=== PATIENT | male | born 1985 | race Caucasian/White ===

== ENCOUNTER 2016-11-25 17:48 | Emergency (ER) | payer OTHER ==
[~2016-11-25] VITALS: Ht 170.2 cm; Wt 71.0 kg
[~2016-11-25 17:48] MED LIST: ADV25050 INH; ALBU18HF IH; ALBU18HF INHALATION; ALBU8.5H3 IH; ALBU8.5H3 INH; ALBU8.5H5 IH; ALBU8.5H5 INH; AZIT250T94 PO; BECL8.7A INH; FLUT12HF IH; PRED20TA PO
[2016-11-25 19:00] VITALS: Ht 170.2 cm; Wt 71.0 kg
[2016-11-25] MEDS ORDERED: ONDANSETRON 4 MG INJ IV STA (20:04)
[2016-11-25] MEDS ORDERED: morphine 2 MG INJ IV STA (20:04)
[2016-11-25] MEDS ORDERED: SOD CHLORIDE 0.9% 1,000 ML IV STA (20:04)
[2016-11-25 21:32] LABS: HEMOGLOBIN 17.1 g/dl (14.0-18.0); MEAN CORPUSCULAR HEMOGLOBIN 30.9 pg (29.0-33.0); MEAN CORPUSCULAR HGB CONC 34.2 g/dl (32.0-37.0); MEAN CORPUSCULAR VOLUME 90.4 fl (82.0-101.0); PLATELET COUNT 178 10^3/UL (140-440); RED BLOOD COUNT 5.53 10^6/ul (4.70-6.10); RED CELL DISTRIBUTION WIDTH 13.2 % (11.5-14.5); UNCORRECTED WBC 4.8 10^3/ul (4.8-10.8); WHITE BLOOD COUNT 4.8 10^3/ul (4.8-10.8)
[2016-11-25 21:48] LABS: CONDITION 1; LH ANALYZER COMMENTS 1; SUSPECT 1
[2016-11-25 21:49] LABS: ALBUMIN 4.1 g/dl (3.3-4.9)
[2016-11-25 21:52] LABS: ALBUMIN/GLOBULIN RATIO 1.57; BILIRUBIN,INDIRECT 0.6 mg/dl (0-1.1); BILIRUBIN,TOTAL 0.6 mg/dl (0.2-1.3); CREATININE 1.22 mg/dl (0.61-1.24); TOTAL PROTEIN 6.7 g/dl (6.1-8.1)
[2016-11-25 21:53] LABS: CALCIUM 9.2 mg/dl (8.4-10.2)
[2016-11-25 22:22] LABS: ADD UMIC YES; URINE BILIRUBIN (Dip) 1+ (NEGATIVE); URINE BLOOD (Dip) 1+ (NEGATIVE); URINE COLOR YELLOW (YELLOW); URINE GLUCOSE (Dip) NEGATIVE (NEGATIVE); URINE KETONES (Dip) NEGATIVE (NEGATIVE); URINE LEUKOCYTE ESTERASE (Dip) NEGATIVE (NEGATIVE); URINE NITRITE (Dip) NEGATIVE (NEGATIVE); URINE TOTAL PROTEIN (Dip) 2+ (NEGATIVE); URINE UROBILINOGEN (Dip) 0.2 E.U./dL (0.1-1.0)
[2016-11-25 22:46] LABS: ICTOTEST NEGATIVE (NEGATIVE)
[2016-11-25 22:47] LABS: BACTERIA,URINE FEW; MUCUS,URINE FEW; SQUAMOUS EPITHELIAL CELL,UR RARE; URINE RBCS 0-2 /HPF (0)
[2016-11-25 23:04] LABS: LYMPHOCYTES # 1.1 10^3/ul (0.8-2.9); NEUTROPHIL # 1.8 10^3/ul (1.6-7.5); PLATELET ESTIMATE PLT APPEAR ADEQUATE
[2016-11-25] MEDS ORDERED: SOD CHLORIDE 0.9% 1,000 ML IV ONE (23:30)
[2016-11-26] MEDS ORDERED: UDLOM GTB (01:13)
[2016-11-26] MEDS ORDERED: ONDA4TAB11 PO (01:13)
--- NOTE | 2016-11-26 01:16 | ERD ---
ER Documentation Chief Complaint Date/Time DATE: 11/26/16 TIME: 01:13 Chief Complaint diarrhea x 1 day, anxiety HPI This 31-year-old male presents for one days history of diarrhea occasional vomiting, feeling sick, fevers and chills. He has appendectomy generalized abdominal pain as well. Has had a small amount of blood in his later episodes of diarrhea that were copious and watery. ROS All systems reviewed and are negative except as per history of present illness. Medications Home Meds Active Scripts Diphenoxylate Hcl-Atropine* (Lomotil*) 5 Ml Soln, 5 ML GTB Q6H Y for DIARRHEA, # 10 ML Prov:ARIA COOPER DO 11/26/16 Ondansetron (Zofran Odt) 4 Mg Tab.rapdis, 4 MG PO Q6, #10 Prov:ARIA COOPER DO 11/26/16 Albuterol Sulfate* (Ventolin HFA*) 18 Gm Hfa.aer.ad, 2 PUFF INHALATION Q4H, #1 INHALER Prov:MORGAN HOFFMANC 04/18/16 Prednisone* (Prednisone*) 20 Mg Tab, 40 MG PO DAILY, #8 TAB 0 Refills Prov:HENOK DORSEYC 02/26/16 Albuterol Sulfate* (Ventolin HFA*) 18 Gm Hfa.aer.ad, 2 PUFF INHALATION Q6H, #1 INHALER 0 Refills Prov:HENOK DORSEYC 02/26/16 Albuterol Sulfate* (Ventolin HFA*) 18 Gm Hfa.aer.ad, 2 PUFF INHALATION Q4H, #1 INHALER Prov:VELMA BRAUN NP 01/22/16 Prednisone* (Prednisone*) 20 Mg Tab, 40 MG PO DAILY for 4 Days, TAB Prov:MICHAELLE ROQUE MD 09/06/15 Albuterol Sulfate* (Albuterol Sulfate* HFA) 8.5 Gm Hfa.aer.ad, 1-2 PUFF INH Q4 Y for SHORTNESS OF BREATH, #1 EA Prov:MICHAELLE ROQUE MD 09/06/15 Albuterol Sulfate* (Proair HFA*) 8.5 Gm Hfa.aer.ad, 2 PUFF INH Q4 for cough wheeze for 30 Days, INH 2 Refills Prov:ANDREZ DELACRUZ MD 06/22/15 Salmeterol Xinaf/Fluticasone* (Advair*) 250-50 Diskus Inhaler, 1 INH INH BID, # 1 INH Prov:ESTELA YATES NP 06/09/15 Azithromycin* (Zithromax*) 250 Mg Tablet, 250 MG PO .ZPACK DIRECTED, #6 TAB TAKE 500 MG (2 TABS) THE FIRST DAY THEN 250 MG (1 TAB) DAYS 2-5 Prov:ESTELA YATES NP 06/09/15 Albuterol Sulfate* (Albuterol Sulfate* HFA) 8.5 Gm Hfa.aer.ad, 1-2 PUFF INH Q4 Y for SHORTNESS OF BREATH, #1 EA Prov:ESTELA YATES NP 06/09/15 Albuterol Sulfate* (Albuterol Sulfate* HFA) 8.5 Gm Hfa.aer.ad, 1-2 PUFF IH Q4H Y for WHEEZING AND SOB, #1 EA Prov:AFRICA STAFFORD PA-C 05/31/15 Prednisone* (Prednisone*) 20 Mg Tab, 40 MG PO DAILY for 3 Days, TAB Prov:AFRICA STAFFORD PA-C 05/31/15 Prednisone* (Prednisone*) 20 Mg Tab, 20 MG PO BID for 3 Days, TAB Prov:MATT FORREST 05/22/15 Beclomethasone Dip* (Qvar 40*) 7.3 Gm Inha, 1 PUFF INH BID, #1 INH Prov:MAYRALIEZTT DO 04/19/15 Albuterol Sulfate* (Proair HFA*) 8.5 Gm Hfa.aer.ad, 2 PUFF INH Q4, #1 INH Prov:MAYRA,LIZETT DO 04/19/15 Salmeterol Xinaf-Fluticasone* (Advair HFA*) 45/212 Aerosol Inhaler, 2 INH IH BID for 30 Days, INH 1 Refill Prov:ANDREZ DELACRUZ MD 04/06/15 Albuterol Sulfate* (Ventolin HFA*) 18 Gm Hfa.aer.ad, 2 PUFF IH Q4H Y for WHEEZING AND RESP DISTRESS for 7 Days, EA 2 Refills Prov:ANDREZ DELACRUZ MD 04/06/15 Prednisone* (Prednisone*) 20 Mg Tab, 60 MG PO DAILY, #15 TAB 60MG PO X 3 DAYS, THEN 40MG PO X 3 DAYS Prov:ANDREZ DELACRUZ MD 04/06/15 Reported Medications Albuterol Sulfate* (Proair HFA*) 8.5 Gm Hfa.aer.ad, 8.5 GM IH PRN 05/25/13 Allergies Allergies: Coded Allergies: No Known Drug Allergies (Verified Allergy, Unknown, 04/18/16) PMhx/Soc Medical and Surgical Hx: pt denies Surgical Hx History of Surgery: No Anesthesia Reaction: No Hx Neurological Disorder: No Hx Respiratory Disorders: Yes (Asthma) Hx Cardiac Disorders: No Hx Psychiatric Problems: No Hx Miscellaneous Medical Probl: No Hx Alcohol Use: Yes Hx Substance Use: Yes (THC) Hx Tobacco Use: No Smoking Status: Never smoker Physical Exam Vitals Vital Signs Date Time Temp Pulse Resp B/P Pulse Ox O2 Delivery O2 Flow Rate FiO2 11/25/16 19:00 102.9 142 20 138/72 100 Physical Exam Const: [] Mild distress, appears uncomfortable Head: Atraumatic Eyes: Normal Conjunctiva ENT: Normal External Ears, Nose and Mouth. Neck: Full range of motion..~ No meningismus. Resp: Clear to auscultation bilaterally Cardio: Regular tachycardia, no murmurs Abd: Soft, diffuse abdominal tenderness without guarding or rebound, non distended. Normal bowel sounds Skin: No petechiae or rashes Ext: No cyanosis, or edema Neur: Awake and alert and oriented 3, no focal deficits Psych: Normal Mood and Affect Result Diagram: 11/25/16202611/25/162026 Results 24 hrs Laboratory Tests Test 11/25/16 20:27 11/25/16 21:50 Alanine Aminotransferase (ALT/SGPT) 39IU/L Albumin 4.1g/dl Albumin/Globulin Ratio 1.57 Alkaline Phosphatase 50IU/L Anion Gap 22 Aspartate Amino Transf (AST/SGOT) 25IU/L Band Neutrophils % 18.0% Basophils # 10^3/ul Basophils % % Blood Urea Nitrogen 23mg/dl Calcium Level 9.2mg/dl Carbon Dioxide Level 22mmol/L Chloride Level 88mmol/L Creatinine 1.22mg/dl Direct Bilirubin 0.00mg/dl Eosinophils # 10^3/ul Eosinophils % % Globulin 2.60g/dl Glucose Level 175mg/dl Hematocrit 50.0% Hemoglobin 17.1g/dl Indirect Bilirubin 0.6mg/dl Lipase 12U/L Lymphocytes # 1.110^3/ul Lymphocytes % 22.0% Mean Corpuscular Hemoglobin 30.9pg Mean Corpuscular Hemoglobin Concent 34.2g/dl Mean Corpuscular Volume 90.4fl Mean Platelet Volume 10.0fl Metamyelocytes # 0.1 Metamyelocytes % 3.0% Monocytes # 1.010^3/ul Monocytes % 20.0% Neutrophils # 1.810^3/ul Neutrophils % 37.0% Nucleated Red Blood Cells # 10^3/ul Nucleated Red Blood Cells % /100WBC Platelet Count 77354^3/UL Platelet Estimate PLT APPEAR ADEQUATE Potassium Level 4.0mmol/L Red Blood Count 5.5310^6/ul Red Cell Distribution Width 13.2% Sodium Level 128mmol/L Total Bilirubin 0.6mg/dl Total Protein 6.7g/dl White Blood Count 4.810^3/ul Urine Bacteria FEW Urine Bilirubin 1+ Urine Clarity CLEAR Urine Color YELLOW Urine Glucose NEGATIVE% Urine Hemoglobin 1+ Urine Ictotest NEGATIVE Urine Ketones NEGATIVE Urine Leukocyte Esterase NEGATIVE Urine Microscopic RBC 0-2/HPF Urine Microscopic WBC NONE SEEN/HPF Urine Mucus FEW Urine Nitrite NEGATIVE Urine Specific [place] >=1.030 Urine Squamous Epithelial Cells RARE Urine Total Protein 2+ Urine Urobilinogen 0.2 E.U./dL Urine pH 6.0 Current Medications Medications (Trade) Dose Ordered Sig/Libertad Route PRN Reason Start Time Stop Time Status Last Admin Dose Admin Sodium Chloride (NS) 1,000 ml @ 1,000 mls/hr Q1H STAT IV 11/25/16 20:04 11/25/16 21:03 DC 11/25/16 20:29 Morphine Sulfate (morphine) 2 mg ONCE STAT IV 11/25/16 20:04 11/25/16 20:05 DC 11/25/16 20:29 Ondansetron HCl 4 mg 4 mg ONCE STAT IV 11/25/16 20:04 11/25/16 20:05 DC 11/25/16 20:29 Sodium Chloride (NS) 1,000 ml @ 1,000 mls/hr Q1H ONCE IV 11/25/16 23:30 11/26/16 00:29 DC 11/25/16 23:34 Procedures/MDM Patient with gastroenteritis causing dehydration. He has a low sodium as well as a high normal hemoglobin and elevated BUN consistent with dehydration. This is likely secondary to his diarrhea. I see no signs of serious bacterial infection. Patient was hydrated with normal saline given a small dose of IV morphine and Zofran in the emergency room. After this he was feeling much better and stated he wished to go home. Believe that he will likely recover from his gastroenteritis. Admitted discharge him with Zofran ODT; remained hydrated as well as Lomotil for symptomatically relief of diarrhea. Return precautions were given as well as primary care follow-up in 2-3 days. Departure Diagnosis: Primary Impression: Rectal bleed Additional Impressions: Gastroenteritis Hyponatremia Dehydration Condition: Stable Patient Instructions: Rectal Bleed, Stable, Gastroenteritis, Viral (6Y-Adult) Referrals: SARAH TITUS (PCP) Additional Instructions: Call your primary care doctor TOMORROW for an appointment during the next 2-3 days.See the doctor sooner or return here if your condition worsens before your appointment time. ARIA COOPER DO Nov 26, 2016 01:16
[2016-11-26] MEDS ORDERED: ACETAMINOPHEN 500 MG TAB PO STA (01:21)
[2016-11-26] MEDS ORDERED: LORAZEPAM 2 MG INJ IV ONE (01:30)
[2016-11-26] MEDS ORDERED: IBUPROFEN 200 MG TAB PO ONE (01:30)
[2016-11-26] MEDS ORDERED: ALBU18HF INHALATION (02:05)
[2016-11-26 02:49] VITALS: BP 118/78; PULSE 105; RESP 18; TEMP 100
[2016-11-27] MEDS ORDERED: DIPH1TAB PO (06:34)
[2016-11-27] MEDS ORDERED: HYDR-906 PO (06:34)
[2016-11-27] MEDS ORDERED: ONDA4TAB14 PO (06:34)
== END 2016-11-26 02:56 | disposition home or self-care (01) ==
LOC: FTE 17:48
DX: K62.5 Hemorrhage of anus and rectum (principal); K52.9 Noninfective gastroenteritis and colitis, unspecified; E87.1 Hypo-osmolality and hyponatremia; E86.0 Dehydration; J45.909 Unspecified asthma, uncomplicated; R11.10 Vomiting, unspecified
CPT/HCPCS: 36415; 80053; 81001; 81003; 83690; 85025; 96361; 96374; 96375; J2060; J2270; J2405; J7030; Z7502; Z7610

== ENCOUNTER 2016-11-27 03:15 | Emergency (ER) | payer OTHER ==
[~2016-11-27] VITALS: Ht 182.9 cm; Wt 71.5 kg
[~2016-11-27 03:15] MED LIST changes: +ONDA4TAB11 PO; +UDLOM GTB
[2016-11-27 03:39] VITALS: Ht 182.9 cm; Wt 71.5 kg
[2016-11-27] MEDS ORDERED: morphine 2 MG INJ IV STA (05:00)
[2016-11-27] MEDS ORDERED: SOD CHLORIDE 0.9% 1,000 ML IV STA (05:00)
[2016-11-27] MEDS ORDERED: DICLOFENAC SODIUM 37.5 MG/ML VIAL IV STA (05:00)
[2016-11-27] MEDS ORDERED: ONDANSETRON 4 MG INJ IV STA (05:00)
[2016-11-27 05:50] LABS: HEMOGLOBIN 16.5 g/dl (14.0-18.0); MEAN CORPUSCULAR HEMOGLOBIN 31.2 pg (29.0-33.0); MEAN CORPUSCULAR HGB CONC 34.3 g/dl (32.0-37.0); MEAN CORPUSCULAR VOLUME 90.9 fl (82.0-101.0); MEAN PLATELET VOLUME 10.3 fl (7.4-10.4); PLATELET COUNT 176 10^3/UL (140-440); RED BLOOD COUNT 5.28 10^6/ul (4.70-6.10); UNCORRECTED WBC 8.7 10^3/ul (4.8-10.8); WHITE BLOOD COUNT 8.7 10^3/ul (4.8-10.8)
[2016-11-27 05:53] LABS: ALBUMIN 3.7 g/dl (3.3-4.9)
[2016-11-27 05:55] LABS: CREATININE 1.23 mg/dl (0.61-1.24)
[2016-11-27 05:56] LABS: ALBUMIN/GLOBULIN RATIO 1.15; BILIRUBIN,INDIRECT 0.6 mg/dl (0-1.1); BILIRUBIN,TOTAL 0.6 mg/dl (0.2-1.3); CALCIUM 8.8 mg/dl (8.4-10.2); TOTAL PROTEIN 6.9 g/dl (6.1-8.1)
[2016-11-27 05:58] LABS: CONDITION 1; LH ANALYZER COMMENTS 1; SUSPECT 1
[2016-11-27 06:34] LABS: POTASSIUM 3.3 mmol/L (3.5-5.1)
[2016-11-27] MEDS ORDERED: HYDR-906 PO (06:34)
[2016-11-27] MEDS ORDERED: DIPH1TAB PO (06:34)
[2016-11-27] MEDS ORDERED: ONDA4TAB14 PO (06:34)
--- NOTE | 2016-11-27 06:37 | ERD ---
ER Documentation Chief Complaint Date/Time DATE: 11/27/16 TIME: 06:35 Chief Complaint blood in stools x 1 day, anxiety HPI This 31-year-old male presents again for diarrhea and crampy abdominal pain. His also had nausea with no vomiting. I saw him last night for the same. Again brings both parents. He's had no fevers or chills she stated the diarrhea did not resolve. He is not taking 1 pill of the medications that he was prescribed. ROS All systems reviewed and are negative except as per history of present illness. Medications Home Meds Active Scripts Ondansetron (Ondansetron Odt) 4 Mg Tab.rapdis, 4 MG PO Q6H Y for NAUSEA AND/OR VOMITING, #10 TAB Prov:ARIA COOPER DO 11/27/16 Diphenoxylate HCl/Atropine (Lomotil 2.5-0.025 mg Tablet) 1 Each Tablet, 1 TAB PO Q6H Y for DIARRHEA, #10 TAB Prov:ARIA COOPER DO 11/27/16 Hydrocodone/Acetaminophen (Kimberly 5-325 Tablet) 1 Each Tablet, 1 EACH PO Q6, #12 TAB Prov:KENNETHARIAHENRI RAMIREZ 11/27/16 Albuterol Sulfate* (Ventolin HFA*) 18 Gm Hfa.aer.ad, 2 PUFF INHALATION Q4H, #1 INHALER Prov:NARCISA ESQUIVEL MD 11/26/16 Diphenoxylate Hcl-Atropine* (Lomotil*) 5 Ml Soln, 5 ML GTB Q6H Y for DIARRHEA, # 10 ML Prov:KENNETHARIAHENRI RAMIREZ 11/26/16 Ondansetron (Zofran Odt) 4 Mg Tab.rapdis, 4 MG PO Q6, #10 Prov:KENNETHARIA DO 11/26/16 Albuterol Sulfate* (Ventolin HFA*) 18 Gm Hfa.aer.ad, 2 PUFF INHALATION Q4H, #1 INHALER Prov:MORGAN HOFFMAN PA-C 04/18/16 Prednisone* (Prednisone*) 20 Mg Tab, 40 MG PO DAILY, #8 TAB 0 Refills Prov:HENOK DORSEY PA-C 02/26/16 Albuterol Sulfate* (Ventolin HFA*) 18 Gm Hfa.aer.ad, 2 PUFF INHALATION Q6H, #1 INHALER 0 Refills Prov:HENOK DORSEY PA-C 02/26/16 Albuterol Sulfate* (Ventolin HFA*) 18 Gm Hfa.aer.ad, 2 PUFF INHALATION Q4H, #1 INHALER Prov:VELMA BRAUN [employer] 01/22/16 Prednisone* (Prednisone*) 20 Mg Tab, 40 MG PO DAILY for 4 Days, TAB Prov:MICHAELLE ROQUE MD 09/06/15 Albuterol Sulfate* (Albuterol Sulfate* HFA) 8.5 Gm Hfa.aer.ad, 1-2 PUFF INH Q4 Y for SHORTNESS OF BREATH, #1 EA Prov:MICHAELLE ROQUE MD 09/06/15 Albuterol Sulfate* (Proair HFA*) 8.5 Gm Hfa.aer.ad, 2 PUFF INH Q4 for cough wheeze for 30 Days, INH 2 Refills Prov:ANDREZ DELACRUZ MD 06/22/15 Salmeterol Xinaf/Fluticasone* (Advair*) 250-50 Diskus Inhaler, 1 INH INH BID, # 1 INH Prov:ESTELA YATES NP 06/09/15 Azithromycin* (Zithromax*) 250 Mg Tablet, 250 MG PO .JOANN DIRECTED, #6 TAB TAKE 500 MG (2 TABS) THE FIRST DAY THEN 250 MG (1 TAB) DAYS 2-5 Prov:ESTELA YATES NP 06/09/15 Albuterol Sulfate* (Albuterol Sulfate* HFA) 8.5 Gm Hfa.aer.ad, 1-2 PUFF INH Q4 Y for SHORTNESS OF BREATH, #1 EA Prov:ESTELA YATES NP 06/09/15 Albuterol Sulfate* (Albuterol Sulfate* HFA) 8.5 Gm Hfa.aer.ad, 1-2 PUFF IH Q4H Y for WHEEZING AND SOB, #1 EA Prov:AFRICA STAFFORD PA-C 05/31/15 Prednisone* (Prednisone*) 20 Mg Tab, 40 MG PO DAILY for 3 Days, TAB Prov:AFRICA STAFFORD PA-C 05/31/15 Prednisone* (Prednisone*) 20 Mg Tab, 20 MG PO BID for 3 Days, TAB Prov:ROMULO FORRESTA 05/22/15 Beclomethasone Dip* (Qvar 40*) 7.3 Gm Inha, 1 PUFF INH BID, #1 INH Prov:LIZETT NUNEZ DO 04/19/15 Albuterol Sulfate* (Proair HFA*) 8.5 Gm Hfa.aer.ad, 2 PUFF INH Q4, #1 INH Prov:LIZETT NUNEZ 04/19/15 Salmeterol Xinaf-Fluticasone* (Advair HFA*) 45/212 Aerosol Inhaler, 2 INH IH BID for 30 Days, INH 1 Refill Prov:ANDREZ DELACRUZ MD 04/06/15 Albuterol Sulfate* (Ventolin HFA*) 18 Gm Hfa.aer.ad, 2 PUFF IH Q4H Y for WHEEZING AND RESP DISTRESS for 7 Days, EA 2 Refills Prov:ANDREZ DELACRUZ MD 04/06/15 Prednisone* (Prednisone*) 20 Mg Tab, 60 MG PO DAILY, #15 TAB 60MG PO X 3 DAYS, THEN 40MG PO X 3 DAYS Prov:ANDREZ DELACRUZ MD 04/06/15 Reported Medications Albuterol Sulfate* (Proair HFA*) 8.5 Gm Hfa.aer.ad, 8.5 GM IH PRN 05/25/13 Allergies Allergies: Coded Allergies: No Known Drug Allergies (Verified Allergy, Unknown, 04/18/16) PMhx/Soc Medical and Surgical Hx: pt denies Surgical Hx History of Surgery: No Anesthesia Reaction: No Hx Neurological Disorder: No Hx Respiratory Disorders: Yes (Asthma) Hx Cardiac Disorders: No Hx Psychiatric Problems: No Hx Miscellaneous Medical Probl: No Hx Alcohol Use: Yes Hx Substance Use: Yes (THC) Hx Tobacco Use: No Smoking Status: Former smoker Physical Exam Vitals Vital Signs Date Time Temp Pulse Resp B/P Pulse Ox O2 Delivery O2 Flow Rate FiO2 11/27/16 05:25 98.9 87 17 131/82 100 Room Air 11/27/16 03:39 98.9 87 20 137/88 100 Physical Exam Const: [] No distress Head: Atraumatic Eyes: Normal Conjunctiva ENT: Normal External Ears, Nose and Mouth. Neck: Full range of motion..~ No meningismus. Resp: Clear to auscultation bilaterally Cardio: Regular rate and rhythm, no murmurs Abd: Soft, mild diffuse abdominal tenderness without guarding or rebound, non distended. Normal bowel sounds Skin: No petechiae or rashes Back: No midline or flank tenderness Ext: No cyanosis, or edema Neur: Awake and alert Psych: Normal Mood and Affect Result Diagram: 11/27/16 7959 11/27/16 0500 Results 24 hrs Laboratory Tests Test 11/27/16 04:55 11/27/16 05:00 Basophils # Pending Basophils % Pending Eosinophils # Pending Eosinophils % Pending Hematocrit 48.0% Hemoglobin 16.5g/dl Lymphocytes # Pending Lymphocytes % Pending Mean Corpuscular Hemoglobin 31.2pg Mean Corpuscular Hemoglobin Concent 34.3g/dl Mean Corpuscular Volume 90.9fl Mean Platelet Volume 10.3fl Monocytes # Pending Monocytes % Pending Neutrophils # Pending Neutrophils % Pending Nucleated Red Blood Cells # Pending Nucleated Red Blood Cells % Pending Platelet Count 04775^3/UL Red Blood Count 5.2810^6/ul Red Cell Distribution Width 13.0% White Blood Count 8.710^3/ul Alanine Aminotransferase (ALT/SGPT) 40IU/L Albumin 3.7g/dl Albumin/Globulin Ratio 1.15 Alkaline Phosphatase 74IU/L Anion Gap Pending Aspartate Amino Transf (AST/SGOT) 25IU/L Blood Urea Nitrogen 19mg/dl Calcium Level 8.8mg/dl Carbon Dioxide Level 24mmol/L Chloride Level Pending Creatinine 1.23mg/dl Direct Bilirubin 0.00mg/dl Globulin 3.20g/dl Glucose Level 121mg/dl Indirect Bilirubin 0.6mg/dl Lipase 74U/L Potassium Level Pending Sodium Level Pending Total Bilirubin 0.6mg/dl Total Protein 6.9g/dl Current Medications Medications (Trade) Dose Ordered Sig/Libertad Route PRN Reason Start Time Stop Time Status Last Admin Dose Admin Sodium Chloride (NS) 1,000 ml @ 1,000 mls/hr Q1H STAT IV 11/27/16 05:00 11/27/16 05:59 DC 11/27/16 05:20 Morphine Sulfate (morphine) 2 mg ONCE STAT IV 11/27/16 05:00 11/27/16 05:02 DC 11/27/16 05:19 Ondansetron HCl (Zofran Inj) 4 mg ONCE STAT IV 11/27/16 05:00 11/27/16 05:02 DC 11/27/16 05:19 Diclofenac Sodium (Dyloject) 37.5 mg ONCE STAT IV 11/27/16 05:00 11/27/16 05:02 DC 11/27/16 05:19 Procedures/MDM Patient with likely viral gastroenteritis. Another abdominal workup is negative for any signs of acute pancreatitis, renal failure, seizures dehydration. Patient was hydrated with normal saline given small dose of morphine, Dilaudid and Zofran the ER should improved his symptoms greatly. Discharging with primary care follow-up in the next 1-2 days. Departure Diagnosis: Primary Impression: Gastroenteritis Condition: Stable Patient Instructions: Gastroenteritis, Viral (6Y-Adult) Additional Instructions: Call your primary care doctor TOMORROW for an appointment during the next 1-2 days.See the doctor sooner or return here if your condition worsens before your appointment time. ARIA COOPER DO Nov 27, 2016 06:37
[2016-11-27 06:52] VITALS: BP 116/93; PULSE 82; RESP 16; TEMP 98.7
[2016-11-27 07:09] LABS: LYMPHOCYTES # 1.1 10^3/ul (0.8-2.9); NEUTROPHIL # 5.3 10^3/ul (1.6-7.5)
== END 2016-11-27 07:02 | disposition home or self-care (01) ==
LOC: E/R 03:15
DX: K52.9 Noninfective gastroenteritis and colitis, unspecified (principal); R11.0 Nausea; R40.2142 Coma scale, eyes open, spontaneous, at arrival to emergency department; R40.2252 Coma scale, best verbal response, oriented, at arrival to emergency department; R40.2362 Coma scale, best motor response, obeys commands, at arrival to emergency department; Z87.891 Personal history of nicotine dependence
CPT/HCPCS: 36415; 80053; 83690; 85025; 96374; 96375; J2270; J2405; J7030; Z7502; Z7610